=== PATIENT | female | born 1945 | race African-American/Black ===

== ENCOUNTER → 2020-08-31 | Outpatient (CLI) | payer OTHER ==
[2020-08-31 10:02] LABS: CREATININE 0.8 mg/dL (0.6-1.0)
--- NOTE | 2020-08-31 10:58 | 2DMMODE ---
[facility] [place] [address] 2 D/M-MODE ECHOCARDIOGRAM Name: BRIAN THORNE Room #: REG [facility]#: [id number] Admission: 08/31/20 Attend Phys: Santana Smith MD Discharge: Date of : 43 Report #: [id number] THIS REPORT FOR: cc: Rebecca Flores,Aroldo Berrios MD [facility] ~ APPROVED REPORT Study performed: 08/31/2020 09:51:54 EXAM: Comprehensive 2D, Doppler, and color-flow Echocardiogram Patient Location: Out-Patient Status: routine BSA: 1.95 HR: 85 bpm BP: 108/52 mmHg Rhythm: NSR Other Information Study Quality: Good Indications Colon Cancer. Hx: HTN. 2D Dimensions RVDd: 31.97 mm IVSd: 7.79 (7-11mm) LVOT Diam: 20.15 (18-24mm) LVDd: 41.34 mm PWd: 8.88 (7-11mm) Ascending Ao: 26.87 (22-36mm) LVDs: 26.15 (25-40mm) Aortic Root: 31.36 mm Volumes Left Atrial Volume (Systole) Single Plane 4CH: 83.74 mL Single Plane 2CH: 80.52 mL LA ESV Index: 45.00 mL/m2 Aortic Valve AoV Peak Sarthak.: 2.12 m/s AO Peak Gr.: 17.92 mmHg LVOT Max P.97 mmHg AO Mean Gr.: 10.87 mmHg AO V2 Mean: 1.59 m/s LVOT Max V: 1.12 m/s [facility] [address] [address] 2 D/M-MODE ECHOCARDIOGRAM Name: BRIAN THORNE Room #: REG [facility]#: [id number] Admission: 08/31/20 Attend Phys: Melanie Islas Discharge: Date of : 43 Report #: [id number] AO V2 VTI: 42.27 cm SHEELA Vmax: 1.68 cm2 Mitral Valve E/A Ratio: 0.7 MV Decel. Time: 263.66 ms MV E Max Sarthak.: 0.77 m/s MV A Sarthak.: 1.15 m/s MV PHT: 76.46 ms IVRT: 76.12 ms Pulmonary Valve PV Peak Sarthak.: 1.08 m/s PV Peak Gr.: 4.67 mmHg Pulmonary Vein P Vein S: 0.51 m/s P Vein A: 0.34 m/s P Vein D: 0.42 m/s P Vein A Dur.: 133.8 msec P Vein S/D Ratio: 1.21 Tricuspid Valve TR Peak Sarthak.: 2.61 m/s RAP Estimate: 5.00 mmHg TR Peak Gr.: 27.20 mmHg PA Pressure: 32.00 mmHg Left Ventricle The left ventricle is normal size. There is normal LV segmental wall motion. There is normal left ventricular wall thickness. Left ventricular systolic function is normal. LVEF is 60-65%. Mild diastolic dysfunction is present. Right Ventricle The right ventricle is normal size. The right ventricular systolic function is normal. Atria Left atrium is moderately dilated. The right atrium size is normal. Aortic Valve Aortic valve leaflets are mildly thickened and calcified. No aortic regurgitation is present. There is mild valvular aortic stenosis. Calculated aortic valve area is 1.7 cm2 with maximum pressure gradient of 18 mmHg and mean pressure gradient of 11 mmHg. Mitral Valve Prominent calcification noted on the anterior mitral valve leaflet. [facility] [address] [place] [address] 2 D/M-MODE ECHOCARDIOGRAM Name: LEONILA THORNEWAYNE Figueroa Room #: REG [facility]#: [id number] Admission: 08/31/20 Attend Phys: Melanie Islas Discharge: Date of : 43 Report #: [id number] Trace to mild mitral regurgitation. Tricuspid Valve The tricuspid valve is normal in structure. Moderate tricuspid regurgitation. Estimated PAP is 30-35mmHg. Pulmonic Valve The pulmonary valve is normal in structure. Mild pulmonic regurgitation. Great Vessels The aortic root is normal in size. The ascending aorta is normal in size. IVC is normal in size and collapses >50% with inspiration. Pericardium There is no pericardial effusion. <Conclusion> Normal left atrial size with mild concentric hypertrophy preserved ejection fraction of 60% Mild aortic valve calcification Mild aortic valve stenosis with a mean gradient of 11 mmHg and aortic valve area estimated 1.7 cm Moderate biatrial enlargement Mild tricuspid valve insufficiency PA pressure estimated 35 mmHg <ELECTRONICALLY SIGNED> By: Aroldo Guajardo MD, FACC 08/31/208 57 57 Aroldo Guajardo MD, FACC /INF
== END ==
LOC: CAT 09:18
PROVIDERS: ATTEND Internal Medicine Hematology & Oncology
DX: C18.3 Malignant neoplasm of hepatic flexure (principal); D70.1 Agranulocytosis secondary to cancer chemotherapy; C78.7 Secondary malignant neoplasm of liver and intrahepatic bile duct; I08.8 Other rheumatic multiple valve diseases; E04.9 Nontoxic goiter, unspecified; J84.10 Pulmonary fibrosis, unspecified

== ENCOUNTER → 2020-10-17 | Outpatient (CLI) | payer OTHER ==
--- NOTE | 2020-10-17 11:12 | 2DMMODE ---
[facility] [place] [address] 2 D/M-MODE ECHOCARDIOGRAM Name: BRIAN THORNE Room #: REG [facility]#: [id number] Admission: 10/17/20 Attend Phys: Santana Smith MD Discharge: Date of : 43 Report #: [id number] THIS REPORT FOR: cc: Rebecca Flores Anna S. DO Lammoglia, Francisco J. MD ~ APPROVED REPORT Study performed: 10/17/2020 09:35:51 EXAM: Comprehensive 2D, Doppler, and color-flow Echocardiogram Patient Location: Echo lab Room #: 2 Status: routine BSA: 1.95 HR: 68 bpm BP: 108/52 mmHg Rhythm: NSR Other Information Study Quality: Good Indications Colon cancer. Hx: HTN. 2D Dimensions RVDd: 35.42 mm IVSd: 11.50 (7-11mm) LVOT Diam: 19.53 (18-24mm) LVDd: 41.65 mm PWd: 8.41 (7-11mm) Ascending Ao: 28.89 (22-36mm) LVDs: 27.24 (25-40mm) Aortic Root: 29.00 mm IVC: 16.00 mm Volumes Left Atrial Volume (Systole) Single Plane 4CH: 57.70 mL Single Plane 2CH: 63.28 mL LA ESV Index: 33.00 mL/m2 Aortic Valve AoV Peak Sarthak.: 1.86 m/s AO Peak Gr.: 14.32 mmHg LVOT Max P.71 mmHg LVOT Max V: 0.96 m/s SHEELA Vmax: 1.55 cm2 [facility] [address] [place] [address] 2 D/M-MODE ECHOCARDIOGRAM Name: BRIAN THORNE Room #: REG [facility]#: [id number] Admission: 10/17/20 Attend Phys: Melanie Islas Discharge: Date of : 43 Report #: [id number] Mitral Valve E/A Ratio: 0.8 MV Decel. Time: 271.39 ms MV E Max Sarthak.: 0.73 m/s MV A Sarthak.: 0.90 m/s MV PHT: 78.70 ms IVRT: 124.57 ms Pulmonary Valve PV Peak Sarthak.: 0.99 m/s PV Peak Gr.: 3.95 mmHg Pulmonary Vein P Vein S: 0.52 m/s P Vein A: 0.28 m/s P Vein D: 0.27 m/s P Vein A Dur.: 133.8 msec P Vein S/D Ratio: 1.93 Tricuspid Valve TR Peak Sarthak.: 2.54 m/s TR Peak Gr.: 25.90 mmHg PA Pressure: 31.00 mmHg Left Ventricle The left ventricle is normal size. There is normal LV segmental wall motion. There is normal left ventricular wall thickness. The left ventricular systolic function is normal. LVEF is 60-65%. Grade I - abnormal relaxation pattern. Right Ventricle The right ventricle is normal size. The right ventricular systolic function is normal. Atria Left atrium is moderately dilated. The right atrium size is normal. Aortic Valve Aortic valve leaflets are mildly thickened and calcified. No aortic regurgitation is present. Mild aortic stenosis. Mitral Valve Prominent calcification noted on the anterior mitral valve leaflet.Clinical correlation for endocarditis suggested Trace to mild mitral regurgitation. No evidence of mitral valve stenosis. [facility] [address] [place] [address] 2 D/M-MODE ECHOCARDIOGRAM Name: BRIAN THORNE Room #: REG [facility]#: [id number] Admission: 10/17/20 Attend Phys: Melanie Islas Discharge: Date of : 43 Report #: [id number] Tricuspid Valve The tricuspid valve is normal in structure. Moderate tricuspid regurgitation. Estimated PAP 31mmHg. Pulmonic Valve The pulmonary valve is normal in structure. Mild pulmonic regurgitation. Great Vessels The aortic root is normal in size. The ascending aorta is normal in size. IVC is normal in size and collapses >50% with inspiration. Pericardium There is no pericardial effusion. <Conclusion> The left ventricle is normal size. LVEF is 60-65%. Left atrium is moderately dilated. Aortic valve leaflets are mildly thickened and calcified. Prominent calcification noted on the anterior mitral valve leaflet.Clinical correlation for endocarditis suggested Trace to mild mitral regurgitation. The tricuspid valve is normal in structure. Moderate tricuspid regurgitation. Estimated PAP 31mmHg. The pulmonary valve is normal in structure. Mild pulmonic regurgitation. There is no pericardial effusion. <ELECTRONICALLY SIGNED> By: Yakov Davis MD 10/17/201111 11 11 Yakov Davis MD /INF
== END ==
LOC: CV 09:21
PROVIDERS: ATTEND Internal Medicine Hematology & Oncology
DX: I08.8 Other rheumatic multiple valve diseases (principal); C18.9 Malignant neoplasm of colon, unspecified

== ENCOUNTER → 2020-11-13 | Outpatient (CLI) | payer OTHER ==
[2020-11-13 10:13] LABS: CREATININE 0.8 mg/dL (0.6-1.0)
== END ==
LOC: CAT 09:16 → LAB 11:24 → CAT 12:33
PROVIDERS: ATTEND Internal Medicine Hematology & Oncology
DX: C38.1 Malignant neoplasm of anterior mediastinum (principal); C18.9 Malignant neoplasm of colon, unspecified; R91.8 Other nonspecific abnormal finding of lung field; R18.8 Other ascites; K76.89 Other specified diseases of liver